=== PATIENT | male | born 1980 | race Caucasian/White ===

== ENCOUNTER 2020-05-27 07:19 | Emergency (ER) | payer OTHER ==
[~2020-05-27] VITALS: Ht 180.3 cm; Wt 88.5 kg
[2020-05-27 07:35] VITALS: BP 146/91
--- NOTE | 2020-05-27 07:41 | NUR ---
MEDICALLY CLEARED. D/C TO PD IN STABLE CONDITION.
--- NOTE | 2020-05-27 08:14 | NUR ---
PER PD REQUESTING TO LEAVE AND INSIST ON A XRAY. DR CHAHAL AWARE
--- NOTE | 2020-05-27 09:10 | NUR ---
PT'S LUMBAR XRAY RESULTED. PT NOW DISCHARGE TO PD. STABLE CONDITION.
== END 2020-05-27 09:13 | disposition home or self-care (01) ==
LOC: ER 07:39
DX: S13.4XXA Sprain of ligaments of cervical spine, initial encounter (principal); S00.81XA Abrasion of other part of head, initial encounter; M54.5 Low back pain; Y08.89XA Assault by other specified means, initial encounter; Y93.89 Activity, other specified; Y92.89 Other specified places as the place of occurrence of the external cause; Y99.8 Other external cause status
CPT/HCPCS: 72110-TC

== ENCOUNTER 2020-10-01 04:21 | Emergency (ER) | payer OTHER ==
[~2020-10-01] VITALS: Ht 180.3 cm; Wt 88.5 kg
--- NOTE | 2020-10-01 04:32 | NUR ---
PT BIBLAPD C/O NECK, LOWER BACK AND L HIP PAIN. pT DENIES ANY TRUAMA OR FALL. pT AAOX4 BREATHING EVENLY AND UNLABORED. pT ATTACHED TO MONITOR AND POX. MD AT BEDSIDE. pT GIVEN BLANKET AND CALL LIGHT WITHIN REACH
--- NOTE | 2020-10-01 04:49 | NUR ---
XRAY AT BEDSIDE
[2020-10-01] MEDS ORDERED: ACETAMINOPHEN ES 500 MG TABLET ONE (04:55)
[2020-10-01] MEDS ORDERED: HYDROCODONE/APAP 5/325MG TABLET ONE (04:55)
[2020-10-01] MEDS ORDERED: HYDROCODONE/APAP 5/325MG TABLET PO ONE (05:00)
[2020-10-01] MEDS ORDERED: ACETAMINOPHEN ES 500 MG TABLET PO ONE (05:00)
--- NOTE | 2020-10-01 05:35 | NUR ---
Alec martinez in [facility] - 10/01/20 at 0545 by SCOTT ATTEMPTED TO GIVE REPORT, DIANA ROCHA. TOLD TO CALL IN FIVE MIN
--- NOTE | 2020-10-01 05:45 | NUR ---
Patient discharged to home in stable condition. Written and verbal after care instructions given. Patient verbalizes understanding of instruction.pt ambulatory with a steady gait
[2020-10-01 06:29] VITALS: BP 120/88
== END 2020-10-01 05:45 ==
LOC: ER 04:23
DX: S70.211A Abrasion, right hip, initial encounter (principal); M25.511 Pain in right shoulder; W19.XXXA Unspecified fall, initial encounter; Y93.89 Activity, other specified; Y92.89 Other specified places as the place of occurrence of the external cause; Y99.8 Other external cause status
CPT/HCPCS: 73030-TC; 73502